=== PATIENT | female | born 1955 | race Hispanic/Latino ===

== ENCOUNTER 2019-06-23 08:01 | Observation (INO) | payer BC ==
[~2019-06-23] VITALS: Ht 154.9 cm; Wt 76.2 kg
[2019-06-23] VITALS (16 sets, daily range): BP systolic 143–168; BP diastolic 76–91
[2019-06-23] MEDS ORDERED: IBUP-2077 PO (11:03)
[2019-06-23] MEDS ORDERED: AMLO5TAB9 PO (11:03)
[2019-06-23] MEDS ORDERED: LEVO25TA54 PO (11:03)
[2019-06-23] MEDS ORDERED: METF-446 PO (11:03)
[2019-06-23] MEDS ORDERED: ACET1TAB12 PO (11:03)
[2019-06-23] MEDS ORDERED: GLIM2TAB4 PO (11:03)
[2019-06-23] MEDS ORDERED: ATOR10TA69 PO (11:03)
[2019-06-23] MEDS ORDERED: PROPOFOL 10 MG/ML 20ML VIAL IV ONE (11:26)
[2019-06-23] MEDS ORDERED: CEFAZOLIN SODIUM 1 GM VIAL ONE (11:31)
[2019-06-23] MEDS ORDERED: MEPERIDINE-PF 25 MG/ML SYG ONE (11:52)
--- NOTE | 2019-06-23 12:15 | NUR ---
REPORT REPORT GIVEN TO REENA RADFORD
--- NOTE | 2019-06-23 12:25 | NUR ---
TRANSFER PATIENT TRANSFERED TO ROOM 414, RECEIVING NURSE RENEA RADFORD. PATIENT AWAKE AND ALERT, PEG TUBE SITE WITH DRESSING DRY AND INTACT, SPOSUE AT BEDSIDE. VS STABLE ON TRANSFER
--- NOTE | 2019-06-23 16:52 | NUR ---
RD NOTIFICATION RD CONSULT DUE TO DYSPHAGIA. PEG TUBE IN PLACE. LABS AND MEDS N/A AT THIS TIME. PAST MEDICAL HX: DM, THYROID AND THROAT CANCER, HYPERLIPIDEMIA, HTN. LBM: 06/20 NOTED. NO EDEMA, SKIN INTACT. RECOMMEND TO CONSULT WITH MD IF ABLE TO START TF RECOMMENDATIONS DUE TO MISSING LAB RESULTS AND MEDICATIONS AT THIS TIME. IF APPROVED BY MD, RD RECOMMENDS TO START GLUCERNA 1.5 VIA PEG TUBE AT 15MLS/HR. INCREASE BY 5MLS EVERY 5 HOURS TOLERATED UNTIL GOAL RATE ACHIEVED. GOAL RATE IS 40MLS/HR. FLUSH WITH 190MLS Q6. FORMULA PROVIDES 1440KCAL/D, 79GM PRO, 729ML FREE WATER. TOTAL WATER IS 1689MLS/D. MONITOR RESIDUALS AND LABS. RD WILL MONITOR AND FOLLOW UP TOMORROW. THANK YOU. Eulalia Jimenez MS, RDN Addendum: 06/23/19 at [address] RD Amended: Links added.
[2019-06-23] MEDS ORDERED: ACETAMINOPHEN-CODEINE 300/30MG TAB GT PRN ×2 (17:30)
--- NOTE | 2019-06-23 19:40 | NUR ---
ONLINE MEDIA BUYER PAGED JULIOCESAR ONLINE MEDIA BUYER POUCH MAKING MACHINE OPERATOR FOR HOSPITALIST, VIA ANSWERING SERVICE. ONLINE MEDIA BUYER CALLED BACK AND REFERRED DIETARY RECOMMENDATION FOR FEEDING. ALSO INFORMED ONLINE MEDIA BUYER THAT MD HOSPITALIST HAS YET TO SEE PT TODAY WHEN ADMITTED FROM GI LAB. NEW ORDERS GIVEN, PLEASE REFER TO CPOE.
--- NOTE | 2019-06-23 19:45 | NUR ---
FEEDING PEG TUBE PLACEMENT VERIFIED. KEPT RESTED IN BED WITH HOB ELEVATED. WATER FLUSHES GIVEN. STARTED FEEDING OF GLUCERNA 1.5, STARTING AT 15CC/HR TO INCREASE 5CC EVERY 5 HOURS AND GOAL RATE OF 40ML/HR. WILL MONITOR CLOSELY. CALL LIGHT WITHIN REACH. Addendum: 06/23/19 at 2310 by PHILOMENA WARREN RN RN Amended: Links added.
[2019-06-23] MEDS ORDERED: HYDRALAZINE HCL 20 MG/ML VIAL IV PRN (21:45)
[2019-06-23] MEDS ORDERED: ONDANSETRON HCL 4 MG/2 ML VIAL IVP PRN (21:45)
--- NOTE | 2019-06-23 22:00 | NUR ---
ROUNDS PT RESTING WELL, FAIRLY ASLEEP WITH RESPIRATIONS EVEN AND UNLABORED. NO NOTED DISTRESS. KEPT UNDISTURBED FOR NOW. WILL MONITOR PT. PT'S SPOUSE AT BEDSIDE.
[2019-06-23] MEDS: MORPHINE SULFATE 2 MG/ML 1ML SYG IVP PRN (23:43)
--- NOTE | 2019-06-23 23:43 | NUR ---
PAIN PT COMPLAINTS OF PAIN STARTING ON HER LEFT EAR. MEDICATED WITH MORPHINE IV. KEPT COMFORTABLE IN BED. CALL LIGHT WITHIN REACH. WILL RE-ASSESS PT.
--- NOTE | 2019-06-24 02:02 | NUR ---
FEEDING AWAKENED PT FOR WATER FLUSHES TO PEG TUBE. CHECKED FOR RESIDUAL, NONE FOUND. PT HAD BEEN TOLERATING FEEDING WELL. INCREASED FEEDING TO 20CC/HR. KEPT RESTED AND COMFORTABLE. HOB KEPT ELEVATED. WILL MONITOR PT.
[2019-06-24 03:10] VITALS: BP 167/85
--- NOTE | 2019-06-24 03:25 | NUR ---
PIV PT'S BP IS ELEVATED 167/85, HR=86. PT DENIES ANY DISCOMFORT AT THIS TIME, ALREADY DOSING OFF BACK TO SLEEP. PIV FLUSHED AND NOTED TO BE LEAKING. DISCONTINUED PIV WITH CATHETER INTACT. RE-INSERTED G22 TO RT HAND WHICH PT TOLERATED WELL. MEDICATED WITH HYDRALAZINE IV. KEPT COMFORTABLE IN BED. WILL RE-ASSESS PT. Addendum: 06/24/19 at 0336 by PHILOMENA WARREN RN RN Amended: Links added.
[2019-06-24] MEDS: MORPHINE SULFATE 2 MG/ML 1ML SYG IVP PRN ×3 (03:45→13:44)
[2019-06-24 05:35] LABS: BASOPHILS % (AUTO) 0.3 % (0.0-5.0); EOSINOPHILS % (AUTO) 2.6 % (0.0-8.0); HEMATOCRIT 30.5 % (36-48); LYMPHOCYTES % (AUTO) 12.1 % (21.0-51.0); MEAN CORPUSCULAR HEMOGLOBIN 29.7 pg (27.0-33.0); MEAN CORPUSCULAR HGB CONC 34.9 g/dL (32.0-36.0); MEAN CORPUSCULAR VOLUME 84.9 fL (79-99); MONOCYTES % (AUTO) 6.1 % (3.0-13.0); NEUTROPHILS % (AUTO) 78.9 % (40.0-77.0); PLATELET COUNT (AUTO) 458 K/uL (130-400); RED BLOOD CELL COUNT(AUTO) 3.59 MIL/uL (4.00-5.50); RED CELL DISTRIBUTION WIDTH 14.1 % (11.0-15.5); WHITE BLOOD COUNT (AUTO) 18.1 K/uL (4.8-10.8)
[2019-06-24 05:55] LABS: CREATININE 0.7 mg/dL (0.5-1.5); POTASSIUM 3.1 mmol/L (3.5-5.1)
[2019-06-24] MEDS: INSULIN HUMULIN R 100 UNIT/ML 3ML SQ SCH ×3 (06:00→12:00)
[2019-06-24] MEDS ORDERED: LEVOTHYROXINE 25 MCG TABLET PO SCH (06:30)
--- NOTE | 2019-06-24 06:30 | NUR ---
PEG CHECKED PEG TUBE FOR RESIDUAL, NONE FOUND. WATER FLUSHES ADMINISTERED. INCREASED FEEDING TO 25CC/HR. KEPT RESTED AND COMFORTABLE.
[2019-06-24 06:32] VITALS: BP 159/86
[2019-06-24] MEDS ORDERED: INSULIN HUMULIN R 100 UNIT/ML 3ML SQ SCH (07:30)
[2019-06-24 08:00] VITALS: BP 158/78
[2019-06-24] MEDS ORDERED: AMLODIPINE BESYLATE 5 MG TAB PO SCH (09:00)
--- NOTE | 2019-06-24 09:33 | NUR ---
CHART CHECK COMPLETED. Pt IS A 63 YEAR OLD FEMALE ADMITTED SECONDARY TO DYSPHAGIA PROMPTING FOR CHART CHECK. Pt WITH RECENT DIAGNOSIS OF ESOPHAGEAL CANCER S/P PEG PLACEMENT. Pt HAS A PAST MEDICAL HISTORY SIGNIFICANT FOR DIABETES MELLITUS, HYPERLIPIDEMIA, HYPERCHOLESTEREMIA. SKILLED SPEECH THERAPY IS NOT RECOMMENDED AT THIS TIME. Addendum: 06/24/19 at [address] Amended: Links added.
[2019-06-24] MEDS ORDERED: POTASSIUM CHLORIDE 10% ELIXIR 20 MEQ/15 ML UDCUP ONE (09:34)
[2019-06-24] MEDS ORDERED: POTASSIUM CHLORIDE 10% ELIXIR 20 MEQ/15 ML UDCUP GT SCH (09:45)
--- NOTE | 2019-06-24 10:25 | NUR ---
Nutrition f/u: Pt currently on continuous feeds, RN reports possible D/C requesting bolus feeds. Feeding recommendations by RD made for bolus, however will recalculate if needed for Glucerna 1.2. RN to notify RD if reevaluation will be needed. Recommendations: Glucerna 1.5, 4cans daily 50ml flush before and after each feed plus 165ml flush BID between feeds for added hydration. Feeding to provide 1424kcal, 78g Pro, 1650ml H2O. RN did notify RD for Glucerna 1.2 bolus recommendations. Glucerna 1.2, 5cans daily 50ml flush before and after each feed plus 150ml flush once a day for added hydration. Feeding to provide 1424kcal, 71gPro, 1710ml H2O. Addendum: 06/24/19 at [address] RD Amended: Links added.
[2019-06-24 11:21] VITALS: BP 168/78
--- NOTE | 2019-06-24 13:03 | NUR ---
DCP CM met with pt and spouse discussed dc plans. Pt is independent until recently, lives at home w/spouse. Denies any equipments/services. Feels safe to go back home, spouse able to assist with transportation and needs. Informed pt will need set up for peg tube feeding supplies, agreeable, spouse signed ALONDRA for any in network DME. Faxed script and clinicals to [facility], spoke to Krupa, will work on Glucerna 1.5 and supplies, will contact pt and spouse for any updates. Primary nurse to give some supplies to start pt today, until own supplies are delivered. Primary nurse aware. CM to cont to follow up. Addendum: 06/24/19 at 1306 by JULIANNA VELAZQUEZ LVN CM Amended: Links added.
[2019-06-24] MEDS ORDERED: ATORVASTATIN CALCIUM 10 MG TABLET PO SCH (21:00)
== END 2019-06-24 14:59 | disposition home or self-care (01) ==
LOC: ENDO 08:01 → 4CH 08:02
PROVIDERS: ADMIT Internal Medicine; ATTEND Internal Medicine
DX: C15.9 Malignant neoplasm of esophagus, unspecified (principal); E11.9 Type 2 diabetes mellitus without complications; E78.00 Pure hypercholesterolemia, unspecified; E78.5 Hyperlipidemia, unspecified; Z87.891 Personal history of nicotine dependence; Z93.1 Gastrostomy status; Z79.899 Other long term (current) drug therapy
CPT/HCPCS: 36415; 43239; 43246; 80048; 82948 ×5; 85025; 96374; 96375; 96376; A4215; A4221; A4222; A4223; A4606; A4620; A4663; G0378 ×30; J0360; J0690; J1815; J2175; J2704